=== PATIENT | female | born 1935 | race Caucasian/White ===

== ENCOUNTER 2020-08-07 11:00 | Outpatient (RCR) | payer MEDICARE, BC | END 2020-08-12 12:00 | disposition home or self-care (01) | LOC: CARDREHAB 11:00 | DX: Z48.812 Encounter for surgical aftercare following surgery on the circulatory system (principal); I21.9 Acute myocardial infarction, unspecified; Z95.5 Presence of coronary angioplasty implant and graft ==

== ENCOUNTER 2020-08-20 10:15 | Outpatient (RCR) | payer MEDICARE, BC | END 2020-11-12 | disposition home or self-care (01) | LOC: CARDREHAB | DX: Z48.812 Encounter for surgical aftercare following surgery on the circulatory system (principal); Z95.5 Presence of coronary angioplasty implant and graft; I25.2 Old myocardial infarction ==